=== PATIENT | female | born 1970 | race African-American/Black ===

== ENCOUNTER 2017-04-25 18:59 | Inpatient (IN) | payer SELFPAY ==
[2017-04-25] MEDS ORDERED: ONDANSETRON HCL INJ/PF 4 MG/2 ML SDV IV ONE (19:37)
[2017-04-25] MEDS ORDERED: MORPHINE SULFATE 10 MG/ML INJ IV ONE (19:37)
--- NOTE | 2017-04-25 19:40 | ER Document Report ---
ED Medical Screen (RME) - General Chief Complaint: Nausea/Vomiting Stated Complaint: NAUSEA,VOMITING,DIARRHEA Time Seen by Provider: 04/25/17 19:34 Mode of Arrival: Ambulatory Information source: Patient Notes: 46-year-old female history of small bowel obstruction secondary to scar tissue from radiation therapy for cervical cancer presents with complaints of abdominal pain nausea vomiting diarrhea I have greeted and performed a rapid initial assessment of this patient. A comprehensive ED assessment and evaluation of the patient, analysis of test results and completion of the medical decision making process will be conducted by additional ED providers. PHYSICAL EXAMINATION: GENERAL: Well-appearing, well-nourished and in moderate distress HEAD: Atraumatic, normocephalic. EYES: Pupils equal round extraocular movements intact, conjunctiva are normal. ENT: Nares patent NECK: Normal range of motion LUNGS: No respiratory distress Musculoskeletal: Normal range of motion NEUROLOGICAL: Normal speech, normal gait. PSYCH: Normal mood, normal affect. SKIN: Warm, Dry, normal turgor, no rashes or lesions noted. TRAVEL OUTSIDE OF THE [place] IN LAST 30 DAYS: No - Related Data Allergies/Adverse Reactions: No Known Allergies Allergy (Verified 06/06/14 19:34) Home Medications: Current Home Medications Ondansetron HCl [Zofran 8 mg Tablet] 8 mg PO Q8HP PRN 04/25/17 [History] Past Medical History - Social History Chew tobacco use (# tins/day): No Frequency of alcohol use: Occasional Drug Abuse: None Family history: Reviewed & Not Pertinent - Past Medical History Cardiac Medical History: Reports: Hx DVT, Hx Pulmonary Embolism Renal/ Medical History: Denies: Hx Peritoneal Dialysis Malignancy Medical History: Reports: Hx Cervical Cancer - Rx SURG. AND RADIATION Past Surgical History: Reports: Hx Hysterectomy - Immunizations Hx Diphtheria, Pertussis, Tetanus Vaccination: Yes Physical Exam - Vital signs Vitals: Temp Pulse Resp BP Pulse Ox 98.4 F 82 18 134/91 H 100 04/25/17 19:22 04/25/17 19:22 04/25/17 19:22 04/25/17 19:22 04/25/17 19:22 Course - Vital Signs Vital signs: Temp Pulse Resp BP Pulse Ox 98.4 F 82 18 134/91 H 100 04/25/17 19:22 04/25/17 19:22 04/25/17 19:22 04/25/17 19:22 04/25/17 19:22
[2017-04-25 20:28] LABS: ABSOLUTE LYMPHOCYTES (AUTO) 0.5 10^3/uL (0.5-4.7); ABSOLUTE MONOCYTES (AUTO) 0.4 10^3/uL (0.1-1.4); ABSOLUTE NEUT (AUTO) 6.9 10^3/uL (1.7-8.2); BASOPHILS % (AUTO) 0.5 % (0-2); EOSINOPHILS % (AUTO) 0.4 % (0-6); HEMATOCRIT 38.7 % (36.0-47.0); HEMOGLOBIN 12.9 g/dL (12.0-15.5); LYMPHOCYTES % (AUTO) 6.3 % (13-45); MEAN CORPUSCULAR HEMOGLOBIN 29.8 pg (27.0-33.4); MEAN CORPUSCULAR HGB CONC 33.3 g/dL (32.0-36.0); MEAN CORPUSCULAR VOLUME 89 fl (80-97); MONOCYTES % (AUTO) 5.5 % (3-13); PLATELET COUNT 157 10^3/uL (150-450); RED BLOOD COUNT 4.32 10^6/uL (3.72-5.28); RED CELL DISTRIBUTION WIDTH 14.4 % (11.5-14.0); SEGMENTED NEUTROPHILS % (AUTO) 87.3 % (42-78); TOTAL CELLS COUNTED % (AUTO) 100 %; WHITE BLOOD COUNT 7.9 10^3/uL (4.0-10.5)
[2017-04-25] MEDS ORDERED: METOCLOPRAMIDE HCL INJ/PF 10 MG/2 ML SDV IV ONE (20:34)
--- NOTE | 2017-04-25 20:37 | ER Document Report ---
ED GI/ - General Chief Complaint: Nausea/Vomiting Stated Complaint: NAUSEA,VOMITING,DIARRHEA Time Seen by Provider: 04/25/17 19:34 Mode of Arrival: Ambulatory Information source: Patient Notes: 46 years old female with a history of abdominal scars due to radiation 9 years ago for cervical cancer, presented with epigastric pain on and off since early this morning. Associated with nausea no vomiting. Denies any diarrhea or constipation. The pain is centered over the epigastric region sharp in nature and nonradiating. Denies any fever chills or other constitutional symptoms. TRAVEL OUTSIDE OF THE [place] IN LAST 30 DAYS: No - Related Data Allergies/Adverse Reactions: No Known Allergies Allergy (Verified 06/06/14 19:34) Home Medications: Current Home Medications Ondansetron HCl [Zofran 8 mg Tablet] 8 mg PO Q8HP PRN 04/25/17 [History] Past Medical History - General Information source: Patient - Social History Smoking Status: Never Smoker Chew tobacco use (# tins/day): No Frequency of alcohol use: Occasional Drug Abuse: None Family History: None Patient has suicidal ideation: No Patient has homicidal ideation: No - Past Medical History Cardiac Medical History: Reports: Hx DVT, Hx Pulmonary Embolism Renal/ Medical History: Denies: Hx Peritoneal Dialysis Malignancy Medical History: Reports: Hx Cervical Cancer - Rx SURG. AND RADIATION Past Surgical History: Reports: Hx Hysterectomy - Immunizations Hx Diphtheria, Pertussis, Tetanus Vaccination: Yes Review of Systems - Review of Systems Notes: REVIEW OF SYSTEMS: CONSTITUTIONAL : Denies fever, chills, or sweats. Denies recent illness. EENT: Denies eye, ear, throat, or mouth pain or symptoms. Denies nasal or sinus congestion or discharge. Denies throat, tongue, or mouth swelling or difficulty swallowing. CARDIOVASCULAR: Denies chest pain. Denies palpitations or racing or irregular heart beat. Denies ankle edema. RESPIRATORY: Denies cough, cold, or chest congestion. Denies shortness of breath, difficulty breathing, or wheezing. GASTROINTESTINAL: As per history of complaint. GENITOURINARY: Denies difficulty urinating, painful urination, burning, frequency, blood in urine, or discharge. FEMALE GENITOURINARY: Denies vaginal bleeding, heavy or abnormal periods, irregular periods. Denies vaginal discharge or odor. MUSCULOSKELETAL: Denies back or neck pain or stiffness. Denies joint pain or swelling. SKIN: Denies rash, lesions or sores. HEMATOLOGIC : Denies easy bruising or bleeding. LYMPHATIC: Denies swollen, enlarged glands. NEUROLOGICAL: Denies confusion or altered mental status. Denies passing out or loss of consciousness. Denies dizziness or lightheadedness. Denies headache. Denies weakness or paralysis or loss of use of either side. Denies problems with gait or speech. Denies sensory loss, numbness, or tingling. Denies seizures. PSYCHIATRIC: Denies anxiety or stress. Denies depression, suicidal ideation, or homicidal ideation. ALL OTHER SYSTEMS REVIEWED AND NEGATIVE. PHYSICAL EXAMINATION: GENERAL: Well-appearing, well-nourished and in no acute distress. Obesity HEAD: Atraumatic, normocephalic. EYES: Pupils equal round and reactive to light, extraocular movements intact, conjunctiva are normal. ENT: Nares patent, oropharynx clear without exudates. Moist mucous membranes. NECK: Normal range of motion, supple without lymphadenopathy LUNGS: Breath sounds clear to auscultation bilaterally and equal. No wheezes rales or rhonchi. HEART: Regular rate and rhythm without murmurs ABDOMEN: Soft, epigastric tenderness on palpation, nondistended abdomen. No guarding, no rebound. No masses appreciated. Female : deferred Musculoskeletal: Normal range of motion, no pitting or edema. No cyanosis. NEUROLOGICAL: Cranial nerves grossly intact. Normal speech, normal gait. Normal sensory, motor exams PSYCH: Normal mood, normal affect. SKIN: Warm, Dry, normal turgor, no rashes or lesions noted. Dictation was performed using [employer] voice recognition software Physical Exam - Vital signs Vitals: Temp Pulse Resp BP Pulse Ox 98.4 F 82 18 134/91 H 100 04/25/17 19:22 04/25/17 19:22 04/25/17 19:22 04/25/17 19:22 04/25/17 19:22 Course - Re-evaluation Re-evalutation: 04/26/17 00:27 Radiology report came back as small bowel obstruction, the case was discussed with the surgical list, and the patient and currently being admitted. - Vital Signs Vital signs: Temp Pulse Resp BP Pulse Ox 98.4 F 82 18 110/67 98 04/25/17 19:22 04/25/17 19:22 04/25/17 19:22 04/25/17 22:01 04/25/17 22:01 - Laboratory Result Diagrams: 04/25/17 20:16 04/25/17 20:16 Laboratory results interpreted by me: 04/25/17 04/25/17 20:16 20:16 RDW 14.4 H Seg Neutrophils % 87.3 H Lymphocytes % 6.3 L Sodium 145.4 H Potassium 3.3 L Glucose 115 H Discharge - Discharge Clinical Impression: Small bowel obstruction Condition: Poor Disposition: ADMITTED INPATIENT Admitting Provider: Surgicalist -
[2017-04-25] MEDS ORDERED: MORPHINE SULFATE 10 MG/ML INJ ONE (20:41)
[2017-04-25 21:01] LABS: ALANINE AMINOTRANSFERASE 31 U/L (9-52); ALBUMIN 4.3 g/dL (3.5-5.0); ALKALINE PHOSPHATASE 66 U/L (38-126); ANION GAP 10 (5-19); ASPARTATE AMINO TRANSFERASE 31 U/L (14-36); BILIRUBIN,DIRECT 0.3 mg/dL (0.0-0.4); BILIRUBIN,TOTAL 0.9 mg/dL (0.2-1.3); BLOOD UREA NITROGEN 10 mg/dL (7-20); CALCIUM 9.6 mg/dL (8.4-10.2); CARBON DIOXIDE 28 mmol/L (22-30); CHLORIDE 107 mmol/L (98-107); GLUCOSE 115 mg/dL (75-110); LIPASE 55.2 U/L (23-300); POTASSIUM 3.3 mmol/L (3.6-5.0); SODIUM 145.4 mmol/L (137-145); TOTAL PROTEIN 7.6 g/dL (6.3-8.2)
--- NOTE | 2017-04-25 23:50 | RADIOLOGY REPORT (SQ) ---
EXAM DESCRIPTION: CT ABD/PELVIS WITH IV ONLY COMPLETED DATE/TIME: 04/25/2017 11:36 pm REASON FOR STUDY: EPIGASTRIC pain, hx obstruction COMPARISON: None. TECHNIQUE: CT scan of the abdomen and pelvis performed using helical scanning technique with dynamic intravenous contrast injection. No oral contrast. Images reviewed with lung, soft tissue, and bone windows. Reconstructed coronal and sagittal MPR images reviewed. Delayed images for evaluation of the urinary system also acquired. All images stored on PACS. All CT scanners at this facility use dose modulation, iterative reconstruction, and/or weight based d osing when appropriate to reduce radiation dose to as low as reasonably achievable (ALARA). [facility]: Dose Right [facility]: CareDose [facility]: Dose Right [facility]: Teradose 4D [facility]: WowOwow CONTRAST TYPE AND DOSE: contrast/concentration: Isovue 370.00 mg/ml; Total Contrast Delivered: 83.0 ml; Total Saline Delivered: 29.0 ml RENAL FUNCTION: Not recorded RADIATION DOSE: CT Rad equipment meets quality standard of care and radiation dose reduction techniq ues were employed. CTDIvol: 17.0 - 17.0 mGy. DLP: 1860 mGy-cm.. LIMITATIONS: None. FINDINGS: LOWER CHEST: No significant findings. No nodules or infiltrates. LIVER: Fatty infiltration. No focal masses. SPLEEN: Normal size. No focal lesions. PANCREAS: No masses. No significant calcifications. No adjacent inflammation or peripancreatic fluid collections. Pancreatic duct not dilated. GALLBLADDER: No identified stones by CT criteria. No inflammatory changes to suggest cholecystitis. ADRENAL GLANDS: No significant masses or asymmetry. RIGHT KIDNEY AND URETER: No solid masses. No significant calcifications. Extra renal pelvis. No h ydronephrosis or hydroureter. LEFT KIDNEY AND URETER: No solid masses. No significant calcifications. No hydronephrosis or hydr oureter. AORTA AND VESSELS: No aneurysm. No dissection. Renal arteries, SMA, celiac without stenosis. RETROPERITONEUM: No retroperitoneal adenopathy, hemorrhage or masses. BOWEL AND PERITONEAL CAVITY: Massive dilatation of proximal small bowel loops. No bowel wall thicken ing. Transition zone in the left lower quadrant. No focal etiology for obstruction. : Decompressed . APPENDIX: Not visualized. PELVIS: No mass. No free fluid. Normal bladder. ABDOMINAL WALL: No masses. No hernias. BONES: No significant or acute findings. OTHER: No other significant finding. IMPRESSION: Small bowel obstruction with transition zone in the right lower quadrant. TECHNICAL DOCUMENTATION: JOB ID: [id number] Quality ID # [id number]: Final reports with documentation of one or more dose reduction techniques (e.g., Au tomated exposure control, adjustment of the mA and/or kV according to patient size, use of iterative reconstruction technique) 2010 [employer]- All Rights Reserved
[2017-04-26] MEDS ORDERED: HYDROMORPHONE HCL INJ/PF 2 MG/ML AMPULE IV PRN (00:53)
[2017-04-26] MEDS ORDERED: LORAZEPAM INJ 2 MG/1 ML VIAL IV ONE (01:07)
[2017-04-26] MEDS: POTASSI CL 20 MEQ/D5-1/2NS 1L 1000 ML IV PRN ×2 (02:18→22:15)
[2017-04-26 03:45] LABS: APPEARANCE,URINE SLIGHTLY-CLOUDY; BILIRUBIN,URINE NEGATIVE (NEGATIVE); COLOR,URINE YELLOW; GLUCOSE, URINE NEGATIVE (NEGATIVE); KETONES,URINE TRACE mg/dL (NEGATIVE); LEUKOCYTE ESTERASE,URINE SMALL (NEGATIVE); NITRITE,URINE NEGATIVE (NEGATIVE); PROTEIN,URINE 30 mg/dL (NEGATIVE); URINE SPECIFIC GRAVITY 1.034
[2017-04-26] MEDS ORDERED: GLUCAGON,HUMAN RECOMB 1 MG INJ SUBCUT PRN (04:26)
[2017-04-26] MEDS ORDERED: DEXTROSE 40% GEL 15 GM TUBE PO PRN ×2 (04:26)
[2017-04-26] MEDS ORDERED: DEXTROSE 50%-WATER 25 GM/50 ML DISP.SYRIN IV PRN ×2 (04:26)
--- NOTE | 2017-04-26 06:32 | PDOC PROGRESS REPORT ---
Subjective Reason For Visit: ABD PAIN BOWEL OBST Physical Exam Vital Signs: Temp Pulse Resp BP Pulse Ox 97.6 F 86 16 110/63 98 04/26/17 03:29 04/26/17 03:29 04/26/17 03:29 04/26/17 03:29 04/26/17 03:29 Intake & Output 04/24/17 04/25/17 04/26/17 06:59 06:59 06:59 Output Total 0 Balance 0 Results Laboratory Results: 04/26/17 02:31 Urine Color YELLOW Urine Appearance SLIGHTLY-CLOUDY Urine pH 6.0 Ur Specific Sulphur 1.034 Urine Protein 30 H Urine Glucose (UA) NEGATIVE Urine Ketones TRACE H Urine Blood SMALL H Urine Nitrite NEGATIVE Ur Leukocyte Esterase SMALL H Urine WBC (Auto) 76 Urine RBC (Auto) 7 Impressions: Abdomen/Pelvis CT 04/25/17 19:40 IMPRESSION: Small bowel obstruction with transition zone in the right lower quadrant. Assessment & Plan - Plan Summary Plan Summary: pARTIAL sb OBSTRUCTION, POSSIBLE DUE TO RADIATION ENETERITIS Plan - Initial conservative management with bowel rest and monitoring
[2017-04-26 07:29] LABS: ANION GAP 7 (5-19); BLOOD UREA NITROGEN 8 mg/dL (7-20); CALCIUM 8.3 mg/dL (8.4-10.2); CARBON DIOXIDE 25 mmol/L (22-30); CHLORIDE 111 mmol/L (98-107); GLUCOSE 111 mg/dL (75-110)
[2017-04-26 07:30] LABS: HEMATOCRIT 33.4 % (36.0-47.0); HEMOGLOBIN 11.3 g/dL (12.0-15.5); MEAN CORPUSCULAR HGB CONC 33.7 g/dL (32.0-36.0); MEAN CORPUSCULAR VOLUME 89 fl (80-97); RED BLOOD COUNT 3.76 10^6/uL (3.72-5.28); WHITE BLOOD COUNT 4.9 10^3/uL (4.0-10.5)
[2017-04-26 07:55] LABS: PLATELET COUNT 100 10^3/uL (150-450)
[2017-04-26] MEDS: ENOXAPARIN SODIUM INJ 40 MG/0.4 ML DISP.SYRIN SUBCUT SCH (09:49)
[2017-04-26] MEDS: POTASSIUM CHLORIDE 20 MEQ/50 ML RTU IV SCH ×2 (09:54→13:54)
--- NOTE | 2017-04-26 13:02 | HISTORY AND PHYSICAL E ---
History and Physical NAME: ELIANA OCAMPO : 1970 AGE: 46Y ADMITTED: 04/26/2017 ROOM: 414 HISTORY OF PRESENT ILLNESS: A 46-year-old female patient presenting to the emergency room with a history of nausea, vomiting from yesterday. Patient started having abdominal distention, nausea, started vomiting, and diffuse abdominal pain, came to emergency room. In emergency room, the CT scan revealed a small bowel obstruction and small bowel. Patient has a significant past medical history of radiation enteritis, DT, previous cervical cancer. 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 Patient had several episodes of obstruction in the past. The patient was admitted here before, 2 to 3 years ago last time, and then patient underwent chemoradiation therapy for cervical cancer in [place] and then she had a few episodes of small bowel obstruction in the past due to radiation enteritis and she was told she was not a surgical candidate because of severe radiation enteritis. For the last 2 years, she has been okay and apparently cancer free. PAST MEDICAL HISTORY: 1. Cervical cancer post chemoradiation therapy. 2. Radiation enteritis. SURGICAL HISTORY: No abdominal major surgeries. REVIEW OF SYSTEMS: As per examination. PHYSICAL EXAMINATION: . No masses. CHEST: Both lungs are clear to auscultation. CARDIOVASCULAR: Both heart sounds are regular. No murmurs or gallops. ABDOMEN: Very minimal distention. Soft abdomen, nontender. No mass palpable. No hernia. She does have bowel sounds. EXTREMITIES: Warm, well perfused. LABORATORY: White count is normal around 9. Hemoglobin is normal. normal. I reviewed the CT scan, which revealed dilated small bowel loops. small bowel. IMPRESSION: Overall, most likely related to same previous radiation enteritis with recurrent partial small bowel obstruction. PLAN: Admit patient to hospital. as much as possible because of radiation enteritis and bowel rest, IV hydration, DVT prophylaxis all started. More than likely will resolve with the same. and other interventions. Patient . DICTATING PHYSICIAN: JAMIE CHINO M.D. [id number] PHY#: [id number] ID: [id number] JOB#: [id number] ACCT: [id number] cc:SHELBY ROBERTS MD, M.D
[2017-04-27] MEDS ORDERED: POTASSI CL 20 MEQ/50 ML RIDER 20 MEQ/50 ML RTUPB IV ONE (01:01)
[2017-04-27 05:04] LABS: ABSOLUTE EOSINOPHILS # (AUTO) 0.1 10^3/uL (0.0-0.6); ABSOLUTE LYMPHOCYTES (AUTO) 0.4 10^3/uL (0.5-4.7); ABSOLUTE MONOCYTES (AUTO) 0.4 10^3/uL (0.1-1.4); ABSOLUTE NEUT (AUTO) 2.2 10^3/uL (1.7-8.2); BASOPHILS % (AUTO) 0.7 % (0-2); EOSINOPHILS % (AUTO) 2.7 % (0-6); HEMATOCRIT 31.3 % (36.0-47.0); HEMOGLOBIN 10.6 g/dL (12.0-15.5); MEAN CORPUSCULAR HEMOGLOBIN 30.2 pg (27.0-33.4); MEAN CORPUSCULAR HGB CONC 33.9 g/dL (32.0-36.0); MEAN CORPUSCULAR VOLUME 89 fl (80-97); MONOCYTES % (AUTO) 11.8 % (3-13); PLATELET COUNT 109 10^3/uL (150-450); RED BLOOD COUNT 3.52 10^6/uL (3.72-5.28); SEGMENTED NEUTROPHILS % (AUTO) 70.8 % (42-78); TOTAL CELLS COUNTED % (AUTO) 100 %; WHITE BLOOD COUNT 3.2 10^3/uL (4.0-10.5)
[2017-04-27] MEDS: POTASSI CL 20 MEQ/D5-1/2NS 1L 1000 ML IV PRN ×3 (06:56→21:50)
--- NOTE | 2017-04-27 09:18 | RADIOLOGY REPORT (SQ) ---
EXAM DESCRIPTION: ABDOMEN 2 VIEWS COMPLETED DATE/TIME: 04/27/2017 8:44 am REASON FOR STUDY: ileus vs partial SBO ( Hx pelvic radiation) COMPARISON: CT abdomen and pelvis 04/25/2017. NUMBER OF VIEWS: Two views. TECHNIQUE: Supine and erect/decubitus radiographic images of the abdomen acquired. LIMITATIONS: None. FINDINGS: FREE AIR: None. No abnormal gas collections. LUNG BASES: Clear. BOWEL GAS PATTERN: There is persistent dilatation of small bowel down to the right lower quadrant wit h differential air-fluid levels. Several loops of small bowel measures 7 cm. The findings consisten t with persistent small-bowel obstruction. Minimal colon gas. CALCIFICATIONS: No suspicious calcifications. SOFT TISSUES: No gross mass or suggestion of organomegaly. HARDWARE: None in the abdomen. BONES: No acute fracture. No worrisome bone lesions. OTHER: Surgical clips in pelvis. NG tube noted overlying stomach or duodenum. IMPRESSION: Persistence distal small bowel obstruction. TECHNICAL DOCUMENTATION: JOB ID: [id number] SC-[id number] 2010 [email or web address]- All Rights Reserved
[2017-04-27] MEDS: ENOXAPARIN SODIUM INJ 40 MG/0.4 ML DISP.SYRIN SUBCUT SCH (10:41)
[2017-04-27] MEDS ORDERED: ACETAMINOPHEN SOLN 325 MG/10.15 ML UDCUP NG PRN (20:52)
--- NOTE | 2017-04-27 21:28 | PDOC PROGRESS REPORT ---
Subjective Progress Note for:: 04/27/17 Subjective:: Patient states that she feels almost back to normal. She would like to have the NG tube out but understands our concerns about the dilation of the 2 loops of small bowel that are still present on her x-ray this morning. She feels that her abdomen is back about to normal in size when she palpates it. She has had some flatus. She has been getting up and walking. She is not nauseated and would be willing to try to take some ice chips or fluids. Reason For Visit: ABD PAIN BOWEL OBST Physical Exam Vital Signs: Temp Pulse Resp BP Pulse Ox 98.1 F 75 14 122/70 100 04/27/17 15:11 04/27/17 15:11 04/27/17 15:11 04/27/17 15:11 04/27/17 15:11 Intake & Output 04/26/17 04/27/17 04/28/17 06:59 06:59 06:59 Intake Total 0 2210 1500 Output Total 300 2000 600 Balance -300 210 900 General appearance: PRESENT: no acute distress - NG in place at 70 cm., well- developed, well-nourished Eye exam: PRESENT: other - No scleral icterus GI/Abdominal exam: PRESENT: normal bowel sounds, other - Careful examination reveals slight fullness in the upper midabdomen. No real tenderness to palpation. No obvious scars from previous surgery.. ABSENT: tenderness Results Laboratory Results: 04/27/17 04:43 04/27/17 00:27 04/27/17 04/27/17 00:27 04:43 WBC 3.2 L RBC 3.52 L Hgb 10.6 L Hct 31.3 L MCV 89 MCH 30.2 MCHC 33.9 RDW 14.0 Plt Count 109 L Seg Neutrophils % 70.8 Lymphocytes % 14.0 Monocytes % 11.8 Eosinophils % 2.7 Basophils % 0.7 Absolute Neutrophils 2.2 Absolute Lymphocytes 0.4 L Absolute Monocytes 0.4 Absolute Eosinophils 0.1 Absolute Basophils 0.0 Potassium 3.1 L Impressions: Abdomen/Pelvis CT 04/25/17 19:40 IMPRESSION: Small bowel obstruction with transition zone in the right lower quadrant. Abdomen X-Ray 04/27/17 06:00 IMPRESSION: Persistence distal small bowel obstruction. Assessment & Plan - Diagnosis (1) SBO (small bowel obstruction) Is this a current diagnosis for this admission?: Yes Plan: Radiologically the patient still has signs of air-fluid levels and at least a partial small bowel obstruction. However in view of her history of radiation enteritis this may be her new normal. She is having some flatus. She feels better than she did before. She has had a couple bowel movements since I was here 24 hours ago. Because of this we will try to clamp her NG tube for today and let her try clear liquids this may give us a functional test of her current bowel situation. We will recheck her electrolytes in the a.m. since her potassium was low last night and also abdominal x-ray to compare to the one today for tomorrow morning. (2) Radiation enteritis Is this a current diagnosis for this admission?: Yes Plan: By history the patient had localized cervical radiation and has been told by a surgeons in [place] that she may have difficulties with her bowel periodically. Apparently was admitted and had the same kind of symptoms as she has now approximately 1-2 years ago. See history and physical. - Time Time Spent with patient: 15-24 minutes Anticipated discharge: Home Within: within 72 hours
[2017-04-28] MEDS: ONDANSETRON HCL INJ/PF 4 MG/2 ML SDV IV PRN ×2 (02:40→14:40)
[2017-04-28 05:34] LABS: ANION GAP 7 (5-19); BLOOD UREA NITROGEN 4 mg/dL (7-20); CALCIUM 8.3 mg/dL (8.4-10.2); CARBON DIOXIDE 27 mmol/L (22-30); CHLORIDE 110 mmol/L (98-107); GLUCOSE 105 mg/dL (75-110); POTASSIUM 3.3 mmol/L (3.6-5.0); SODIUM 144.2 mmol/L (137-145)
[2017-04-28] MEDS: ENOXAPARIN SODIUM INJ 40 MG/0.4 ML DISP.SYRIN SUBCUT SCH (07:59)
--- NOTE | 2017-04-28 08:36 | RADIOLOGY REPORT (SQ) ---
EXAM DESCRIPTION: ABDOMEN 2 VIEWS COMPLETED DATE/TIME: 04/28/2017 7:46 am REASON FOR STUDY: F/U on the pSBO COMPARISON: 04/27/2017. NUMBER OF VIEWS: Two views. TECHNIQUE: Supine and erect/decubitus radiographic images of the abdomen acquired. LIMITATIONS: None. FINDINGS: FREE AIR: None. No abnormal gas collections. LUNG BASES: Clear. BOWEL GAS PATTERN: No change in small bowel dilation with air-fluid levels. CALCIFICATIONS: No suspicious calcifications. SOFT TISSUES: No gross mass or suggestion of organomegaly. HARDWARE: Nasogastric tube with the tip in the stomach. BONES: No acute fracture. No worrisome bone lesions. OTHER: No other significant finding. IMPRESSION: NO CHANGE IN THE FINDINGS OF SMALL BOWEL OBSTRUCTION. TECHNICAL DOCUMENTATION: JOB ID: [id number] [employer]- All Rights Reserved
[2017-04-28] MEDS ORDERED: GLUCAGON,HUMAN RECOMB 1 MG INJ SUBCUT PRN (09:35)
[2017-04-28] MEDS ORDERED: DEXTROSE 50%-WATER 25 GM/50 ML DISP.SYRIN IV PRN ×2 (09:35)
[2017-04-28] MEDS ORDERED: DEXTROSE 40% GEL 15 GM TUBE PO PRN ×2 (09:35)
--- NOTE | 2017-04-28 09:38 | PDOC PROGRESS REPORT ---
Subjective Progress Note for:: 04/28/17 Subjective:: Feels better. Still bloated but having bowel movements. Reason For Visit: ABD PAIN BOWEL OBST Physical Exam Vital Signs: Temp Pulse Resp BP Pulse Ox 97.5 F 61 17 102/57 L 99 04/28/17 07:16 04/28/17 07:16 04/28/17 07:16 04/28/17 07:16 04/28/17 07:16 Intake & Output 04/27/17 04/28/17 04/29/17 06:59 06:59 06:59 Intake Total 2210 3654 Output Total 1999 2700 Balance 210 954 General appearance: PRESENT: no acute distress, cooperative Respiratory exam: PRESENT: clear to auscultation renetta Cardiovascular exam: PRESENT: RRR GI/Abdominal exam: PRESENT: other - Soft, protuberant, nontender to palpation. Results Laboratory Results: 04/27/17 04:43 04/28/17 04:12 04/28/17 04:12 Sodium 144.2 Potassium 3.3 L Chloride 110 H Carbon Dioxide 27 Anion Gap 7 BUN 4 L Creatinine 0.75 Est GFR ( Amer) > 60 Est GFR (Non-Af Amer) > 60 Glucose 105 Calcium 8.3 L Impressions: Abdomen/Pelvis CT 04/25/17 19:40 IMPRESSION: Small bowel obstruction with transition zone in the right lower quadrant. Abdomen X-Ray 04/28/17 06:00 IMPRESSION: NO CHANGE IN THE FINDINGS OF SMALL BOWEL OBSTRUCTION. Assessment & Plan - Diagnosis (1) SBO (small bowel obstruction) Is this a current diagnosis for this admission?: Yes Plan: Clinically improved but x-rays still demonstrate significant small bowel dilation. Will obtain small bowel follow series today to better evaluate the small bowel. Make her n.p.o. for the study.
[2017-04-28] MEDS: POTASSI CL 20 MEQ/D5-1/2NS 1L 1000 ML IV PRN (12:58)
[2017-04-28] MEDS ORDERED: LORAZEPAM INJ 2 MG/1 ML VIAL ONE (14:40)
[2017-04-28] MEDS ORDERED: BENZOCAINE/MENTHOL SORE THROAT LOZENGE BUCCAL PRN (14:45)
[2017-04-28] MEDS ORDERED: LORAZEPAM INJ 2 MG/1 ML VIAL IV ONE (16:00)
[2017-04-29] MEDS: POTASSI CL 20 MEQ/D5-1/2NS 1L 1000 ML IV PRN ×2 (01:51→14:59)
[2017-04-29] MEDS: ENOXAPARIN SODIUM INJ 40 MG/0.4 ML DISP.SYRIN SUBCUT SCH (08:54)
--- NOTE | 2017-04-29 09:45 | RADIOLOGY REPORT (SQ) ---
EXAM DESCRIPTION: SMALL BOWEL SERIES COMPLETED DATE/TIME: 04/28/2017 7:17 pm REASON FOR STUDY: persistent small bowel distention COMPARISON: CT ABDOMEN PELVIS 05/31/2009, 09/07/2012, 06/17/2014, 04/25/2017 Small bowel follow-through 09/08/2012 KUB 06/10/2014, 04/27/2017, 04/28/2017 FLUOROSCOPY TIME: 1.6 minutes 8 images saved to PACS. LIMITATIONS: None. PROCEDURE: Initial printing services coordinator image of abdomen acquired, followed by administration of 240 mL Gastrografi n contrast into the patient's NG tube. Serial radiographic images acquired. Fluoroscopic images rec orded of the terminal ileum and other indicated areas. All images stored on PACS. FINDINGS: Induction Coordination Engineer film demonstrates persistent dilated small bowel loops in the mid abdomen, similar c ompared to films 04/28/2017, 04/27/[address] abdomen pelvis 04/25/2017. Nasogastric tube tip and s bebeto port in the stomach. 240 mL of Gastrografin was instilled through the patient's pre-existing nasogastric tube. Normal gas tric emptying into nondilated jejunal loops. On the 30 minutes image, oral contrast is seen in nondistended proximal jejunal loops, and distended mid small bowel loops. 3 hour film demonstrates emptying of the stomach, and oral contrast throughout the gastrointestinal t ract including the decompressed distal small bowel, and colon. Contrast is in the rectosigmoid. Results discussed with Dr. Larson IMPRESSION: Partial small bowel obstruction, persistent dilated mid small bowel loops are present wh ich allow passage of contrast into the decompressed distal small bowel and decompressed colon. COMMENT: Quality ID [id number]: Final reports for procedures using fluoroscopy that document radiation exp osure indices, or exposure time and number of fluorographic images (if radiation exposure indices are not available) TECHNICAL DOCUMENTATION: JOB ID: [id number] [employer]- All Rights Reserved
--- NOTE | 2017-04-29 10:28 | RADIOLOGY REPORT (SQ) ---
EXAM DESCRIPTION: ABDOMEN 2 VIEWS COMPLETED DATE/TIME: 04/29/2017 10:13 am REASON FOR STUDY: f/u sbo COMPARISON: Small bowel follow-through series yesterday Multiple previous CT abdomen pelvis exams and KUB exams most recently 04/25/2017 and 04/28/2017 NUMBER OF VIEWS: Two views. TECHNIQUE: Supine and upright radiographic images of the abdomen acquired. LIMITATIONS: None. FINDINGS: FREE AIR: None. No abnormal gas collections. LUNG BASES: Clear. BOWEL GAS PATTERN: There is still a markedly distended small bowel loop in the mid abdomen, unchanged over the series of exams. Stomach, distal small bowel, colon decompressed. Contrast given for the small bowel follow-through is now seen in nondistended colon. CALCIFICATIONS: No suspicious calcifications. SOFT TISSUES: No gross mass or suggestion of organomegaly. HARDWARE: None in the abdomen. BONES: No acute fracture. No worrisome bone lesions. OTHER: No other significant finding. IMPRESSION: Findings most likely represent a partial small bowel obstruction with a persistent diste nded mid abdominal small bowel loop, and contrast now in decompressed colon. TECHNICAL DOCUMENTATION: JOB ID: [id number]- All Rights Reserved
--- NOTE | 2017-04-29 10:44 | PDOC PROGRESS REPORT ---
Subjective Progress Note for:: 04/29/17 Subjective:: + BM and flatus. no abdominal pains Reason For Visit: ABD PAIN BOWEL OBST Physical Exam Vital Signs: Temp Pulse Resp BP Pulse Ox 98.2 F 63 18 97/53 L 100 04/29/17 07:14 04/29/17 07:14 04/29/17 07:14 04/29/17 07:14 04/29/17 07:14 Intake & Output 04/28/17 04/29/17 04/30/17 06:59 06:59 06:59 Intake Total 3654 4103 Output Total 2700 1100 Balance 954 3003 Exam: Abd soft and nontender Results Laboratory Results: 04/27/17 04:43 04/28/17 04:12 Impressions: Abdomen/Pelvis CT 04/25/17 19:40 IMPRESSION: Small bowel obstruction with transition zone in the right lower quadrant. Small Bowel X-Ray 04/28/17 00:00 IMPRESSION: Partial small bowel obstruction, persistent dilated mid small bowel loops are present which allow passage of contrast into the decompressed distal small bowel and decompressed colon. Abdomen X-Ray 04/29/17 07:00 IMPRESSION: Findings most likely represent a partial small bowel obstruction with a persistent distended mid abdominal small bowel loop, and contrast now in decompressed colon. Assessment & Plan - Time Time Spent with patient: 15-24 minutes - Inpatient Certification Medical Necessity: Need For IV Fluids, Risk of Diagnosis Which Will Require Inpatient Eval/Care/Monitoring - Plan Summary Plan Summary: SBFT yesterday showed partial SBO that clinically appears to be resolving Tolerated clears. Will increase to full liquids today
[2017-04-30] MEDS: POTASSI CL 20 MEQ/D5-1/2NS 1L 1000 ML IV PRN ×2 (01:12→12:46)
[2017-04-30] MEDS: ENOXAPARIN SODIUM INJ 40 MG/0.4 ML DISP.SYRIN SUBCUT SCH (10:10)
--- NOTE | 2017-04-30 13:43 | PDOC PROGRESS REPORT ---
Subjective Progress Note for:: 04/30/17 Subjective:: + BM and Flatus Reason For Visit: ABD PAIN BOWEL OBST Physical Exam Vital Signs: Temp Pulse Resp BP Pulse Ox 97.7 F 57 L 20 113/67 100 04/30/17 11:52 04/30/17 11:52 04/30/17 11:52 04/30/17 11:52 04/30/17 11:52 Intake & Output 04/29/17 04/30/17 05/01/17 06:59 06:59 06:59 Intake Total 4103 3184 597 Output Total 1100 1500 Balance 3003 1684 597 Exam: abd is soft and nontender Results Laboratory Results: 04/27/17 04:43 04/28/17 04:12 Impressions: Abdomen/Pelvis CT 04/25/17 19:40 IMPRESSION: Small bowel obstruction with transition zone in the right lower quadrant. Small Bowel X-Ray 04/28/17 00:00 IMPRESSION: Partial small bowel obstruction, persistent dilated mid small bowel loops are present which allow passage of contrast into the decompressed distal small bowel and decompressed colon. Abdomen X-Ray 04/29/17 07:00 IMPRESSION: Findings most likely represent a partial small bowel obstruction with a persistent distended mid abdominal small bowel loop, and contrast now in decompressed colon. Assessment & Plan - Time Time Spent with patient: 15-24 minutes - Plan Summary Plan Summary: Increase diet to soft diet. If tolerates will discharge Ask [employer] for decreased platelets to 100,000. Last chemo and rad tx was 10 years ago
[2017-04-30 18:49] VITALS: BP 106/60
== END 2017-04-30 19:20 | disposition home or self-care (01) | DRG 389 ==
LOC: ER 18:59 → EH 04-26 00:43 → 4N 04-26 03:26
PROVIDERS: ATTEND Colon & Rectal Surgery
PROC: 0D9670Z Drainage of Stomach with Drainage Device, Via Natural or Artificial Opening (ICD-10-PCS; principal; 2017-04-26)
DX: K56.609 Unspecified intestinal obstruction, unspecified as to partial versus complete obstruction (principal); K52.0 Gastroenteritis and colitis due to radiation; Z92.3 Personal history of irradiation; Z85.41 Personal history of malignant neoplasm of cervix uteri; Z90.710 Acquired absence of both cervix and uterus; Z86.711 Personal history of pulmonary embolism; Z86.718 Personal history of other venous thrombosis and embolism
CPT/HCPCS: 36415; 74020; 74177; 74250; 80048; 80053; 81001; 83690; 84132; 85025; 85027; 96374; 96375; 99285; J1170; J2060; J2270; J2405; J2765; J3480; J3490

== ENCOUNTER 2017-06-02 21:37 | Emergency (ER) | payer SELFPAY ==
[2017-06-02] MEDS ORDERED: NORMAL SALINE 1000 ML 1,000 ML IV ONE (22:25)
[2017-06-02] MEDS ORDERED: MORPHINE SULFATE 10 MG/ML INJ IV ONE (22:25)
[2017-06-02] MEDS ORDERED: ONDANSETRON HCL INJ/PF 4 MG/2 ML SDV IV ONE (22:25)
--- NOTE | 2017-06-02 22:27 | ER Document Report ---
ED Medical Screen (RME) - General Chief Complaint: Abdominal Pain Stated Complaint: VOMITING Time Seen by Provider: 06/02/17 22:23 Mode of Arrival: Wheelchair Information source: Patient, Relative Notes: Patient has a history of colon cancer and bowel obstructions, presenting to the ER today for nausea, vomiting, epigastric pain since 5 PM today. Patient states "it feels just like to have another obstruction." TRAVEL OUTSIDE OF THE [place] IN LAST 30 DAYS: No - Related Data Allergies/Adverse Reactions: No Known Allergies Allergy (Verified 06/02/17 21:50) Past Medical History - General Information source: Patient, Relative - Social History Family history: Reviewed & Not Pertinent - Past Medical History Cardiac Medical History: Reports: Hx DVT, Hx Pulmonary Embolism Renal/ Medical History: Denies: Hx Peritoneal Dialysis Malignancy Medical History: Reports: Hx Cervical Cancer - Rx SURG. AND RADIATION Past Surgical History: Reports: Hx Hysterectomy - Immunizations Hx Diphtheria, Pertussis, Tetanus Vaccination: Yes History of Influenza Vaccine for 01/2017 - 06/2017 Season: Refused Review of Systems - Review of Systems Gastrointestinal: See HPI Physical Exam - Vital signs Vitals: Temp Pulse Resp BP Pulse Ox 98.5 F 72 20 137/81 H 100 06/02/17 21:55 06/02/17 21:55 06/02/17 21:55 06/02/17 21:55 06/02/17 21:55 - Notes Notes: PHYSICAL EXAMINATION: GENERAL: Uncomfortable appearing, holding emesis bag, but in no acute distress. LUNGS: CTAB and equal. No wheezes rales or rhonchi. HEART: Regular rate and rhythm without murmurs Course - Vital Signs Vital signs: Temp Pulse Resp BP Pulse Ox 98.5 F 72 20 137/81 H 100 06/02/17 21:55 06/02/17 21:55 06/02/17 21:55 06/02/17 21:55 06/02/17 21:55
[2017-06-02 22:57] LABS: HEMATOCRIT 39.1 % (36.0-47.0); HEMOGLOBIN 13.2 g/dL (12.0-15.5); MEAN CORPUSCULAR HEMOGLOBIN 30.3 pg (27.0-33.4); MEAN CORPUSCULAR HGB CONC 33.8 g/dL (32.0-36.0); MEAN CORPUSCULAR VOLUME 90 fl (80-97); PLATELET COUNT 151 10^3/uL (150-450); RED BLOOD COUNT 4.37 10^6/uL (3.72-5.28); RED CELL DISTRIBUTION WIDTH 13.7 % (11.5-14.0); WHITE BLOOD COUNT 8.6 10^3/uL (4.0-10.5)
[2017-06-02 23:14] LABS: ALANINE AMINOTRANSFERASE 37 U/L (9-52); ALBUMIN 4.5 g/dL (3.5-5.0); ALKALINE PHOSPHATASE 54 U/L (38-126); ANION GAP 15 (5-19); ASPARTATE AMINO TRANSFERASE 28 U/L (14-36); BILIRUBIN,DIRECT 0.2 mg/dL (0.0-0.4); BILIRUBIN,TOTAL 0.9 mg/dL (0.2-1.3); BLOOD UREA NITROGEN 10 mg/dL (7-20); CALCIUM 9.5 mg/dL (8.4-10.2); CARBON DIOXIDE 27 mmol/L (22-30); CHLORIDE 103 mmol/L (98-107); GLUCOSE 138 mg/dL (75-110); POTASSIUM 3.1 mmol/L (3.6-5.0); SODIUM 145.1 mmol/L (137-145); TOTAL PROTEIN 7.5 g/dL (6.3-8.2)
[2017-06-02 23:15] LABS: ABSOLUTE LYMPHOCYTES# (MANUAL) 0.5 10^3/uL (0.5-4.7); ABSOLUTE MONOCYTES # (MANUAL) 0.3 10^3/uL (0.1-1.4); ABSOLUTE NEUTROPHILS# (MANUAL) 7.7 10^3/uL (1.7-8.2); BASOPHILS % (MANUAL) 0 % (0-2); EOSINOPHILS % (MANUAL) 0 % (0-6); LYMPHOCYTES % (MANUAL) 6 % (13-45); MONOCYTES % (MANUAL) 4 % (3-13); PLATELET COMMENT ADEQUATE; PLATELET LARGE PRESENT; SEGMENTED NEUTROPHILS % (MAN) 90 % (42-78); TOTAL CELLS COUNTED 100
[2017-06-02 23:19] LABS: ANISOCYTOSIS SLIGHT; HYPOCHROMASIA SLIGHT; OVALOCYTES SLIGHT
[2017-06-02 23:20] LABS: POIKILOCYTOSIS SLIGHT; TEAR DROP CELLS SLIGHT
[2017-06-03] MEDS ORDERED: MORPHINE SULFATE 10 MG/ML INJ IV ONE (00:22)
[2017-06-03] MEDS ORDERED: NORMAL SALINE 1000 ML 1,000 ML IV ONE (00:22)
[2017-06-03] MEDS ORDERED: ONDANSETRON HCL INJ/PF 4 MG/2 ML SDV IV ONE ×2 (00:22→08:39)
--- NOTE | 2017-06-03 00:27 | ER Document Report ---
ED General - General Chief Complaint: Abdominal Pain Stated Complaint: VOMITING Time Seen by Provider: 06/02/17 22:23 Mode of Arrival: Wheelchair Notes: Patient is a 46-year-old female with a history of cervical cancer who is a history of recurrent small bowel obstructions. Patient says she has got scarring from radiation treatments she had for cervical cancer. She is currently cancer free. She has had a few bowel obstructions. She also sees a special [facility]. She is told that she has a "collapsed in her intestine". Patient said tonight she still having pain medicine left side of her abdomen. She then started vomiting. Her last bowel movement was around 6 PM. She says since this evening she has been vomiting frequently. She was seen in triage and oral contrasted CT scan was ordered. Patient has drank one bottle but says she is having a difficult time finishing the second she feels as if she is just going to throw it up. Patient denies any recent fevers or infections. No other complaints at this time. No history of abdominal surgeries. TRAVEL OUTSIDE OF THE [place] IN LAST 30 DAYS: No - Related Data Allergies/Adverse Reactions: No Known Allergies Allergy (Verified 06/02/17 21:50) Past Medical History - General Information source: Patient, Relative - Social History Smoking Status: Smoker,Current Status Unk Chew tobacco use (# tins/day): No Frequency of alcohol use: Rare Drug Abuse: None Family History: None Patient has suicidal ideation: No Patient has homicidal ideation: No - Past Medical History Cardiac Medical History: Reports: Hx DVT, Hx Pulmonary Embolism Renal/ Medical History: Denies: Hx Peritoneal Dialysis Malignancy Medical History: Reports: Hx Cervical Cancer - Rx SURG. AND RADIATION Past Surgical History: Reports: Hx Hysterectomy - Immunizations Hx Diphtheria, Pertussis, Tetanus Vaccination: Yes Review of Systems - Review of Systems Notes: My Normal Review Basic REVIEW OF SYSTEMS: CONSTITUTIONAL : Denies fever, chills, or sweats. Denies recent illness. EENT: Denies eye, ear, throat, or mouth pain or symptoms. Denies nasal or sinus congestion. CARDIOVASCULAR: Denies chest pain. RESPIRATORY: Denies cough, cold, or chest congestion. Denies shortness of breath, difficulty breathing, or wheezing. GASTROINTESTINAL: Left upper quadrant abdominal pain. Some vomiting. GENITOURINARY: Denies difficulty urinating, painful urination, burning, frequency, or blood in urine. MUSCULOSKELETAL: Denies neck or back pain or joint pain or swelling. SKIN: Denies rash or skin lesions. NEUROLOGICAL: Denies altered mental status or loss of consciousness. Denies headache. Denies weakness or paralysis or loss of use of either side. Denies problems with gait or speech. Denies sensory or motor loss. ALL OTHER SYSTEMS REVIEWED AND NEGATIVE. Physical Exam - Vital signs Vitals: Temp Pulse Resp BP Pulse Ox 98.5 F 72 20 137/81 H 100 06/02/17 21:55 06/02/17 21:55 06/02/17 21:55 06/02/17 21:55 06/02/17 21:55 - Notes Notes: General Appearance: Well nourished, alert, cooperative, no acute distress, mild to moderate obvious discomfort. Vitals: reviewed, See vital signs table. Head: no swelling or tenderness to the head Eyes: PERRL, EOMI, Conjuctiva clear Mouth: No decreasd moisture Neck: Supple, no neck tenderness, No thyromegaly Lungs: No wheezing, No rales, No rhonci, No accessory muscle use, good air exchange bilaterally. Heart: Normal rate, Regular rythm, No murmur, no rub Abdomen: Normal BS, soft, No rigidity, pain palpation mostly in the left side. No pain to palpation in the right side. No significant distention. , No guarding, no rebound, no abdominal masses, no organomegaly Extremities: strength 5/5 in all extremities, good pulses in all extremities, no swelling or tenderness in the extremities, no edema. Skin: warm, dry, appropriate color, no rash Neuro: speech clear, oriented x 3, normal affect, responds appropriately to questions. Course - Re-evaluation Re-evalutation: 06/03/17 02:[address] scan does show some hydronephrosis into the kidneys. She does have bladder distention. She does mention that she recently has been passing some blood in her urine. Suspect that she probably has some urinary obstruction that led to the hydronephrosis. She said this did happen one several years ago as well. She says happens in relation to the radiation therapy she has had in the past. Urinalysis shows some evidence of urinary tract infection. I will give her an antibiotic. I will Place Lemons catheter. Her serum creatinine is normal. Want to see how much urine is expressed from the catheter I will call her doctor at [facility]. 06/03/17 04:00 CT scan read as high-grade obstruction. I am not convinced that the patient truly has a obstruction. She has had several bowel movements over the course of the day. She is passing gas. On the scan she is gas going all the way into the rectum. She does have a recent history of being diagnosed with a collapsed bowel. Also in reviewing her recent admissions for previous small bowel obstructions her repeat KUB is of always showed the same consistent pattern consistent with obstruction. I suspect that this appearance on her CT scan is probably chronic. I think her vomiting and pain night actually is related to the large bowel hydronephrosis and urinary obstruction that she has. I have placed a Lemons catheter and she is already had approximately 750 mL's of urine out and this was placed after the patient said she was able to urinate a large amount out herself. Patient therefore was obstructed with well over a liter of urine. I have made a phone call to [facility] to speak with her oncologist, Dr. Littlejohn. I am awaiting to hear back. 06/03/17 04:[address] Eduarda Sellers. Informed her of my concerns and the findings on CT scan. I did explain to her why I think the patient was likely has a true small bowel obstruction more likely her vomiting pain was likely related to her hydronephrosis. Patient herself is actually much improved after having the Lemons catheter placed and having her bladder being drained. She is continuing to drain urine from the catheter. She now has personally liter of urine out. She has had no further vomiting. She is able to tolerate all the oral contrast without vomiting. She has been passing gas. I do not think an NG tube is necessary at this time. I did explain my findings and I reason with Dr. Briones. She is understanding of this and agrees and says that the patient can be transferred to [facility]. She says they will evaluate her and find out where she is having urinary obstruction. Patient starts having abdominal distention and vomiting then we will reconsider placing a NG tube. Currently the patient' s abdomen is soft nondistended and she is not having much pain. Physical exam findings are not consistent with that of obstruction. Dictation of this chart was performed using voice recognition software; therefore, there may be some unintended grammatical errors. - Vital Signs Vital signs: Temp Pulse Resp BP Pulse Ox 98.5 F 72 18 124/70 98 06/02/17 21:55 06/02/17 21:55 06/03/17 03:31 06/03/17 03:31 06/03/17 03:31 - Laboratory Result Diagrams: 06/02/17 22:46 06/02/17 22:46 Laboratory results interpreted by me: 06/02/17 06/02/17 06/02/17 22:46 22:46 22:46 Seg Neuts % (Manual) 90 H Lymphocytes % (Manual) 6 L Sodium 145.1 H Potassium 3.1 L Glucose 138 H Magnesium 1.1 L* Urine Protein Urine Ketones Ur Leukocyte Esterase Urine Ascorbic Acid 06/03/17 00:30 Seg Neuts % (Manual) Lymphocytes % (Manual) Sodium Potassium Glucose Magnesium Urine Protein 100 H Urine Ketones TRACE H Ur Leukocyte Esterase SMALL H Urine Ascorbic Acid 40 H Discharge - Discharge Clinical Impression: Urinary obstruction Hydronephrosis Qualifiers: Hydronephrosis type: unspecified Qualified Code(s): N13.30 - Unspecified hydronephrosis Vomiting Qualifiers: Vomiting type: unspecified Vomiting Intractability: unspecified Nausea presence : with nausea Qualified Code(s): R11.2 - Nausea with vomiting, unspecified Condition: Stable Disposition: [facility]
[2017-06-03 00:57] LABS: APPEARANCE,URINE CLOUDY; BILIRUBIN,URINE NEGATIVE (NEGATIVE); COLOR,URINE YELLOW; GLUCOSE, URINE NEGATIVE (NEGATIVE); KETONES,URINE TRACE mg/dL (NEGATIVE); LEUKOCYTE ESTERASE,URINE SMALL (NEGATIVE); NITRITE,URINE NEGATIVE (NEGATIVE); PROTEIN,URINE 100 mg/dL (NEGATIVE); URINE SPECIFIC GRAVITY 1.011; UROBILINOGEN,URINE NEGATIVE mg/dL (<2.0)
[2017-06-03] MEDS: MAGNESIUM SULFATE/D5W 1 GM/100 ML RTUPB IV SCH ×3 (02:00→05:07)
--- NOTE | 2017-06-03 02:08 | RADIOLOGY REPORT (SQ) ---
EXAM DESCRIPTION: CT ABD/PELVIS WITH IV ORAL COMPLETED DATE/TIME: 06/03/2017 1:44 am REASON FOR STUDY: probably sbo, n/v/ abd pain, diffuse abdominal pain. COMPARISON: CT abdomen and pelvis 04/25/2017, 06/07/2014. Small bowel follow-through 04/28/2017. TECHNIQUE: CT scan of the abdomen and pelvis performed using helical scanning technique with dynamic intravenous contrast injection and with oral contrast. Images reviewed with lung, soft tissue, and b one windows. Reconstructed coronal and sagittal MPR images reviewed. Delayed images for evaluation of the urinary system also acquired. All images stored on PACS. All CT scanners at this facility use dose modulation, iterative reconstruction, and/or weight based d osing when appropriate to reduce radiation dose to as low as reasonably achievable (ALARA). [facility]: Dose Right [facility]: CareDose [facility]: Dose Right [facility]: Teradose 4D [facility]: Stion CONTRAST TYPE AND DOSE: contrast/concentration: Isovue 370.00 mg/ml; Total Contrast Delivered: 80.0 ml; Total Saline Delivered: 41.0 ml RENAL FUNCTION: Creatinine 0.83 RADIATION DOSE: CT Rad equipment meets quality standard of care and radiation dose reduction techniq ues were employed. CTDIvol: 18.3 mGy. DLP: 1995 mGy-cm.. LIMITATIONS: None. FINDINGS: LOWER CHEST: No consolidation or pleural effusion. LIVER: Normal size. No masses. No dilated ducts. SPLEEN: Normal size. PANCREAS: No significant calcifications. No adjacent inflammation or peripancreatic fluid collections . Pancreatic duct not dilated. GALLBLADDER: No identified stones by CT criteria. No inflammatory changes to suggest cholecystitis. ADRENAL GLANDS: No significant masses or asymmetry. RIGHT KIDNEY AND URETER: There is severe right-sided hydronephrosis. The visualized ureter is not di lated. LEFT KIDNEY AND URETER: There is moderate left-sided hydronephrosis. The visualized ureter is not di lated. AORTA AND VESSELS: No abdominal aortic aneurysm. RETROPERITONEUM: No retroperitoneal hemorrhage or masses. BOWEL AND PERITONEAL CAVITY: The stomach is distended with an air-fluid level. Markedly dilated smal l bowel loops with air-fluid levels are measuring up to 6.8 cm. Collapsed loops of small bowel are s een in the right lower quadrant. The colon is collapsed. No free fluid or free air. APPENDIX: Normal. PELVIS: The urinary bladder is distended. There is soft tissue edema at the pelvis. No definite mas s is identified. ABDOMINAL WALL: No hernias. BONES: No acute findings. IMPRESSION: 1. High grade distal small bowel obstruction with a probable transition point in the ri ght lower quadrant. 2. Interval development of severe right hydronephrosis and moderate left hydronephrosis. 3. Soft tissue edema in the pelvis. TECHNICAL DOCUMENTATION: JOB ID: [id number] [place]- Quality ID # [id number]: Final reports with documentation of one or more dose reduction techniques (e.g., Au tomated exposure control, adjustment of the mA and/or kV according to patient size, use of iterative reconstruction technique) 2010 [employer]- All Rights Reserved
[2017-06-03] MEDS ORDERED: CEFTRIAXONE INJ 1000 MG VIAL IV ONE (02:29)
[2017-06-03] MEDS ORDERED: POTASSIUM CHLORIDE 10 MEQ TABLET.SA PO ONE (03:59)
[2017-06-03] MEDS ORDERED: POTASSI CL 20 MEQ/50 ML RIDER 20 MEQ/50 ML RTUPB IV ONE (05:30)
[2017-06-03 10:14] VITALS: BP 108/75
== END 2017-06-03 09:48 | disposition short-term general hospital (02) ==
LOC: ER 21:37
DX: N13.30 Unspecified hydronephrosis (principal); R10.9 Unspecified abdominal pain; R11.2 Nausea with vomiting, unspecified; Z85.41 Personal history of malignant neoplasm of cervix uteri; Z86.718 Personal history of other venous thrombosis and embolism; Z90.710 Acquired absence of both cervix and uterus; Z86.711 Personal history of pulmonary embolism
CPT/HCPCS: 96376; 99285; 96361; 51702; 96375; 96365; 96366; 96368; 36415; 83690; 83735; 85025; 81025; 80053; 81001; 74177; J2270 ×2; J3475; J0696; J2405 ×2; J7030 ×2